=== PATIENT | male | born 1960 | race Caucasian/White ===

== ENCOUNTER 2018-09-24 11:28 | Emergency (ER) | payer BC ==
[2018-09-24 12:37] VITALS: BP 122/74
--- NOTE | 2018-09-24 13:04 | UC ---
Throat Pain/Nasal Jimmy HPI - HPI Summary HPI Summary: 57-year-old male comes in with a chief complaint of pressure in the frontal sinuses. Discussed some rhinorrhea but not a lot. Pressure is decreased when he took a hot shower he felt like things loosened up. He does have poor dentition but he does not have any tooth pain. No fevers no generalized headache. He's had both dental infections and sinus infections in the past he feels this is more in his sinuses than dentition. - History of Current Complaint Chief Complaint: UCRespiratory Stated Complaint: SINUSES Time Seen by Provider: 09/24/18 12:55 Pain Intensity: 4 - Allergies/Home Medications Allergies/Adverse Reactions: Allergies Allergy/AdvReac Type Severity Reaction Status Date / Time Penicillins Allergy Severe Anaphylatic Verified 09/24/18 12:28 Shock Home Medications: Home Medications Multivitamin [Multivitamins] 1 cap PO DAILY 09/24/18 [History Confirmed 09/24/18 ] buPROPion TAB* [Wellbutrin TAB*] 150 mg PO DAILY 09/24/18 [History Confirmed ] PMH/Surg Hx/FS Hx/Imm Hx Previously Healthy: Yes - Surgical History Surgical History: None - Family History Known Family History: Positive: Non-Contributory - Social History Alcohol Use: Rare Substance Use Type: None Smoking Status (MU): Never Smoked Tobacco - Immunization History Most Recent Influenza Vaccination: Not the season Review of Systems All Other Systems Reviewed And Are Negative: Yes Constitutional: Positive: Negative Skin: Positive: Negative Eyes: Positive: Negative ENT: Positive: Nasal Discharge, Sinus Congestion, Sinus Pain/Tenderness. Negative: Dental Pain, Ear Ache Respiratory: Positive: Negative Cardiovascular: Positive: Negative Gastrointestinal: Positive: Negative Motor: Positive: Negative Neurovascular: Positive: Negative Musculoskeletal: Positive: Negative Neurological: Positive: Negative Psychological: Positive: Negative Is Patient Immunocompromised?: No Physical Exam Triage Information Reviewed: Yes Appearance: Well-Appearing, No Pain Distress, Well-Nourished Vital Signs: Initial Vital Signs Temp 97 F 09/24/18 12:30 Pulse 66 09/24/18 12:30 Resp 16 09/24/18 12:30 BP 122/74 09/24/18 12:30 Pulse Ox 100 09/24/18 12:30 Vital Signs Reviewed: Yes Eye Exam: Normal Eyes: Positive: Conjunctiva Clear ENT: Positive: Pharynx normal, TMs normal, Other - Patient is tender to palpation over the maxillary sinuses at the base of the nose. He does have poor dentition but his teeth are nontender to palpation. Dental: Positive: Gross Decay/Caries @. Negative: Percussion Tenderness @ Neck exam: Normal Neck: Positive: Supple Respiratory: Positive: Lungs clear, Normal breath sounds, No respiratory distress Cardiovascular: Positive: RRR Musculoskeletal Exam: Normal Musculoskeletal: Positive: Strength Intact, ROM Intact Neurological Exam: Normal Neurological: Positive: Alert, Muscle Tone Normal Psychological Exam: Normal Psychological: Positive: Age Appropriate Behavior Skin Exam: Normal Throat Pain/Nasal Course/Dx - Course Course Of Treatment: We discussed the possible causes of the patient's pain. 2 primary thoughts are either a sinus infection or a dental infection. Given that the patient feels better when he is in the hot shower makes it more likely that it's sinus. He also is nontender and his dentition today. Is allergic to penicillins. Patient prefers to be on antibiotics today. I chose doxycycline to cover for sinusitis and a penicillin allergic patient with reported anaphylaxis to penicillin. Given the possibility that it's neither sinusitis or dental infection, The patient knows if he worsens or does not improve he needs to get reevaluated. - Differential Dx/Diagnosis Provider Diagnosis: Sinusitis Discharge - Sign-Out/Discharge Documenting (check all that apply): Patient Departure All imaging exams completed and their final reports reviewed: No Studies - Discharge Plan Condition: Stable Disposition: HOME Prescriptions: DOXYcycline CAP(*) [DOXYcycline 100MG CAP(*)] 100 mg PO BID #20 cap Patient Education Materials: Sinusitis (ED) Referrals: Jayesh Beth MD [Primary Care Provider] - Additional Instructions: FOLLOW UP WITH YOUR DOCTOR IF NOT COMPLETELY IMPROVED. GET RECHECKED FOR ANY WORSENING OF YOUR CONDITION; PAIN, FEVER, YOU FEEL ILL OR QUESTIONS OR CONCERNS. - Billing Disposition and Condition Condition: STABLE Disposition: Home
== END 2018-09-24 13:05 | disposition home or self-care (01) ==
LOC: UCCORT 11:28
DX: J32.9 Chronic sinusitis, unspecified (principal); Z88.0 Allergy status to penicillin
CPT/HCPCS: 99202; G0463